=== PATIENT | female | born 1980 | race American Indian/Alaskan Native ===

== ENCOUNTER 2016-09-29 22:26 | Emergency (ER) | payer OTHER ==
[2016-09-29 22:37] VITALS: BP 134/72
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
== END 2016-09-30 01:38 | disposition home or self-care (01) ==
LOC: ED 22:26
DX: S39.012A Strain of muscle, fascia and tendon of lower back, initial encounter (principal); S16.1XXA Strain of muscle, fascia and tendon at neck level, initial encounter; V49.69XA Unspecified car occupant injured in collision with other motor vehicles in traffic accident, initial encounter; Y93.89 Activity, other specified; Y99.8 Other external cause status; Y92.89 Other specified places as the place of occurrence of the external cause
CPT/HCPCS: 72040; 72100; 99283

== ENCOUNTER 2020-09-14 | Emergency (ER) | payer OTHER ==
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
== END 2020-09-14 03:18 | disposition home or self-care (01) ==
LOC: ED
CPT/HCPCS: 99282